=== PATIENT | female | born 1955 | race Caucasian/White ===

== ENCOUNTER 2017-07-10 14:20 | Emergency (ER) | payer OTHER ==
[~2017-07-10] VITALS: Ht 165.1 cm; Wt 72.6 kg
[2017-07-10 15:18] LABS: URINE BILIRUBIN NEGATIVE (Negative); URINE BLOOD NEGATIVE (Negative); URINE CLARITY CLEAR; URINE COLOR YELLOW; URINE GLUCOSE-RANDOM* NEGATIVE (Negative); URINE KETONES NEGATIVE (Negative); URINE LEUKOCYTES-REFLEX NEGATIVE (Negative); URINE NITRITE-REFLEX NEGATIVE (Negative); URINE PROTEIN (DIPSTICK) NEGATIVE (Negative); URINE SPECIFIC GRAVITY >= 1.030 (1.005-1.035); URINE UROBILINOGEN 0.2 E.U./dl (0.2-1.0)
== END 2017-07-10 17:45 | disposition home or self-care (01) ==
LOC: ER 14:20
PROVIDERS: Nurse Practitioner Family
DX: R39.15 Urgency of urination (principal); N89.8 Other specified noninflammatory disorders of vagina; E78.5 Hyperlipidemia, unspecified; M19.90 Unspecified osteoarthritis, unspecified site; F41.9 Anxiety disorder, unspecified; F17.210 Nicotine dependence, cigarettes, uncomplicated

== ENCOUNTER 2017-09-27 11:01 | Emergency (ER) | payer OTHER ==
[~2017-09-27] VITALS: Ht 162.6 cm; Wt 95.3 kg
[2017-09-27 12:04] LABS: URINE BILIRUBIN NEGATIVE (Negative); URINE BLOOD NEGATIVE (Negative); URINE CLARITY CLEAR; URINE COLOR YELLOW; URINE GLUCOSE-RANDOM* NEGATIVE (Negative); URINE KETONES TRACE (Negative); URINE LEUKOCYTES-REFLEX NEGATIVE (Negative); URINE NITRITE-REFLEX POSITIVE (Negative); URINE PROTEIN (DIPSTICK) NEGATIVE (Negative); URINE SPECIFIC GRAVITY 1.015 (1.005-1.035); URINE UROBILINOGEN 0.2 E.U./dl (0.2-1.0)
[2017-09-27 12:37] LABS: BACTERIA-REFLEX >30 Many /HPF (None Seen); CASTS None Seen /LPF (None Seen); CRYSTALS None Seen /LPF (None Seen); SQUAMOUS 4-10 Moderate /LPF (0-3); URINE RBC None Seen /HPF (0-2); URINE WBC-REFLEX 6-15 Few /HPF (0-5)
[2017-09-27] MEDS ORDERED: BACTRIM DS TAB1 EACH PO (12:39)
[2017-09-27 13:40] VITALS: BP 168/99
== END 2017-09-27 13:20 | disposition home or self-care (01) ==
LOC: ER 11:01
PROVIDERS: Nurse Practitioner
DX: N39.0 Urinary tract infection, site not specified (principal); H92.02 Otalgia, left ear; E78.5 Hyperlipidemia, unspecified; F41.9 Anxiety disorder, unspecified; F17.210 Nicotine dependence, cigarettes, uncomplicated

== ENCOUNTER 2018-12-10 16:37 | Emergency (ER) | payer OTHER ==
[~2018-12-10] VITALS: Ht 165.1 cm; Wt 77.1 kg
[~2018-12-10 16:37] MED LIST: BACTRIM DS TAB1 EACH PO
[2018-12-10 17:16] LABS: ABSOLUTE NEUTROPHILS 11.6 thou/uL (1.4-8.2); BASOPHILS 0.2 % (0.0-2.0); EOSINOPHILS 0.3 % (0.0-3.0); HEMATOCRIT 38.8 % (37.0-47.0); HEMOGLOBIN 12.8 gm/dL (12.0-15.0); LYMPHOCYTES 5.8 % (24.0-44.0); MCH 29.7 pg (26.0-34.0); MCV 90.1 fL (80.0-100.0); MONOCYTES 7.1 % (1.0-8.0); PLATELET COUNT 227 thou/uL (150-400); POLYS 86.6 % (36.0-66.0); RBC 4.31 mil/uL (4.20-5.00); RDW 14.4 % (10.5-14.5); WBC 13.5 thou/uL (4.0-11.0)
[2018-12-10 17:18] LABS: URINE BILIRUBIN NEGATIVE (Negative); URINE BLOOD 2+ (Negative); URINE CLARITY CLEAR; URINE COLOR YELLOW; URINE GLUCOSE-RANDOM* NEGATIVE (Negative); URINE KETONES 1+ (Negative); URINE LEUKOCYTES-REFLEX NEGATIVE (Negative); URINE NITRITE-REFLEX NEGATIVE (Negative); URINE PROTEIN (DIPSTICK) 1+ (Negative); URINE SPECIFIC GRAVITY >= 1.030 (1.005-1.035)
[2018-12-10 17:25] LABS: BACTERIA-REFLEX None Seen /HPF (None Seen); CASTS None Seen /LPF (None Seen); CRYSTALS None Seen /LPF (None Seen); SQUAMOUS 0-3 Few /LPF (0-3); URINE RBC 0-2 Rare /HPF (0-2); URINE WBC-REFLEX 0-5 Rare /HPF (0-5)
[2018-12-10] MEDS ORDERED: CLARITIN10 MG PO (17:29)
[2018-12-10] MEDS ORDERED: LISINOPRIL5 MG PO (17:29)
[2018-12-10] MEDS ORDERED: MOBIC7.5 MG PO (17:30)
[2018-12-10] MEDS ORDERED: LYRICA 50 MG50 MG PO (17:30)
[2018-12-10] MEDS ORDERED: LIORESAL 10 MG10 MG PO (17:32)
[2018-12-10] MEDS ORDERED: NAPROSYN500 MG PO (17:32)
[2018-12-10] MEDS ORDERED: METOPROLOL SUCC50 MG PO (17:32)
[2018-12-10] MEDS ORDERED: TYLENOL EXTRA500 MG PO (17:32)
[2018-12-10] MEDS ORDERED: TRAMADOL 50 MG50 MG PO (17:32)
[2018-12-10] MEDS ORDERED: DULCOLAX5 MG PO (17:33)
[2018-12-10] MEDS ORDERED: AMITRIPTYLINE H25 M2 PO (17:33)
[2018-12-10] MEDS ORDERED: ZOCOR20 MG PO (17:33)
[2018-12-10] MEDS ORDERED: MIRALAX17 GM PO (17:34)
[2018-12-10] MEDS ORDERED: MILK OF MA400 MG/5 M PO (17:34)
[2018-12-10 17:35] LABS: CALCIUM 9.2 mg/dL (8.5-10.1); CREATININE 0.6 mg/dL (0.6-1.0); POTASSIUM 3.1 mmol/L (3.5-5.1)
[2018-12-10 17:40] LABS: ALBUMIN 3.1 g/dL (3.4-5.0); TOTAL BILIRUBIN 0.5 mg/dL (<0.1-1.0); TOTAL PROTEIN 7.5 g/dL (6.4-8.2)
[2018-12-10 18:52] LABS: TROPONIN-I <0.06 ng/mL (<0.06)
[2018-12-10] MEDS ORDERED: VENTOLIN HFA 1818 GM INH (20:05)
[2018-12-10] MEDS ORDERED: COLACE100 MG PO (20:05)
[2018-12-10] MEDS ORDERED: DOXYCYCLINE 10100 MG PO (20:05)
[2018-12-10 21:34] VITALS: BP 174/69
== END 2018-12-10 21:35 ==
LOC: ER 16:37
PROVIDERS: Physician Assistant
DX: N39.0 Urinary tract infection, site not specified (principal); K59.00 Constipation, unspecified; J40 Bronchitis, not specified as acute or chronic; E78.5 Hyperlipidemia, unspecified; G35 Multiple sclerosis; F41.9 Anxiety disorder, unspecified; F17.210 Nicotine dependence, cigarettes, uncomplicated; Z88.1 Allergy status to other antibiotic agents

== ENCOUNTER 2018-12-25 04:54 | Inpatient (IN) | payer OTHER ==
[~2018-12-25] VITALS: Ht 165.1 cm; Wt 77.1 kg
--- NOTE | ~2018-12-25 | HC ---
[facility] [place] [address] CONSULTATION Name: KATHI REYES Room #: 456-P ADM IN M.R.#: [id number] Admission: 12/25/18 Attend Phys: Alistair Tapia MD Discharge: Date of : 57 Report #: [id number] THIS REPORT FOR: //name// CC: Alistair GROVES unknown DATE OF SERVICE: 12/25/2018 CHIEF COMPLAINT: Left distal femur fracture. HISTORY OF PRESENT ILLNESS: This is wheelchair bound a 63-year-old female who apparently while being moved in a Eliane lift began having increasing pain in her knee and distal femoral region. She was evaluated in the Emergency Room and determined to have a distal femur fracture. Apparently, there was some concern by the ED about a femoral artery injury; however, that turned out not to be the case. PAST MEDICAL HISTORY: Significant for hypertension, severe debility with wheelchair bound status, anxiety, hyperlipidemia. SOCIAL HISTORY: Significant for a history of tobacco use. MEDICATIONS: As noted on JUL. LABORATORY STUDIES: Noted a hemoglobin 12.1. X-rays and CT scan note a comminuted mildly displaced fracture at the distal femur, which is transverse in nature consistent with insufficiency type fracture along with a proximal fibular fracture, which is nondisplaced. IMPRESSION: Left nondisplaced distal femoral transverse fracture, insufficiency type. PLAN: Options were discussed at length with the patient. She is a nonsurgical candidate due to her nonambulatory status and the nondisplaced distal femur fracture. Plan at this point will be to proceed with splinting. She is to be nonweightbearing to that extremity. We will get her into a knee immobilizer in approximately a week or so. By: [id number] Pancho Mendoza MD /nt
[~2018-12-25 04:54] MED LIST changes: +AMITRIPTYLINE H25 M2 PO; +CLARITIN10 MG PO; +COLACE100 MG PO; +DOXYCYCLINE 10100 MG PO; +DULCOLAX5 MG PO; +LIORESAL 10 MG10 MG PO; +LISINOPRIL5 MG PO; +LYRICA 50 MG50 MG PO; +METOPROLOL SUCC50 MG PO; +MILK OF MA400 MG/5 M PO; +MIRALAX17 GM PO; +MOBIC7.5 MG PO; +NAPROSYN500 MG PO; +TRAMADOL 50 MG50 MG PO; +TYLENOL EXTRA500 MG PO; +VENTOLIN HFA 1818 GM INH; +ZOCOR20 MG PO
[2018-12-25 04:55] VITALS: BP 122/74
[2018-12-25 05:46] LABS: HEMATOCRIT 36.5 % (37.0-47.0); HEMOGLOBIN 12.1 gm/dL (12.0-15.0); MCH 29.4 pg (26.0-34.0); MCV 89.2 fL (80.0-100.0); RBC 4.1 mil/uL (4.20-5.00); RDW 14.3 % (10.5-14.5); WBC 9.6 thou/uL (4.0-11.0)
[2018-12-25 05:53] LABS: APTT 37.1 Seconds (24.5-32.8); CREATININE 0.6 mg/dL (0.6-1.0); INR 1.1; POTASSIUM 3.5 mmol/L (3.5-5.1); PROTIME 11.4 Seconds (9.3-11.4)
--- NOTE | 2018-12-25 07:36 | NUR ---
ASSUMED PT CARE 0715, PT ALERT AND ORIENTED, LEFT KNEE PAIN RATED 4/10. PT WOULD LIKE TO SPEAK TO TRAIN DIRECTOR AFTER ADMISSION. MULTIPLE COMPLAINTS REGARDING CURRENT LIVING FACILITY.
[2018-12-25 09:21] VITALS: BP 156/67
--- NOTE | 2018-12-25 10:04 | NUR ---
0938 ATTEMPTED TO CALL REPORT-LUAN ANAND GOWNED UP IN ISOLATION ROOM.
[2018-12-25 10:25] VITALS: BP 148/60
[2018-12-25 12:15] VITALS: BP 127/62
--- NOTE | 2018-12-25 16:47 | NUR ---
PT TO THE UNIT FROM THE ER. PT STATED THAT AT [facility]TC FACILITY THEY WERE GETTING HER OUT OF BED USING A LIFT AND THAT THEY HIT HER LEG AND SHE NOW HAS BROKEN LEG. ASSESSMENT CHARTED - MEDS PER JUL - GIVEN TRAMADOL FOR CO'S OF PAIN IN L LEG AND BACK WITH EFFECT - PT FOUND TO BE SLEEPING AT TIMES. DERICK DIET AND FLUIDS. NO CO'S OF NAUSEA. PODIATARY NOTIFIED OF CONUSLT DUE TO FUNGUS ON TOES. PT APPEARS TO BE FORGETFUL AT TIMES - REPEATING THINGS OVER AND OVER AGAIN. NO CO'S AT THE PRESENT TIME.
[2018-12-25 19:48] VITALS: BP 119/66
--- NOTE | 2018-12-26 00:34 | NUR ---
Assumed pt care at 1900. Pt is A/OX4 with forgetfulness.VSS. Pt has a splint wrapped in acewrap on LLE and another dressing on Right calf which pt reported having wound care done every other day at the facility. Informed pt wound care will be consulted to assess wound. Pt refused dsg to be taken off for assessment stating she wants the same treatment orders done as prior to adm as well as no normal saline stating it causes infection on her,Metal Bumper notified. C/o pain not reliefed by TramadolKerri CLAMPER notified gave order for [place] 5/325mg X1 and pt reports feeling much better and able to sleep LOP 2/10. Pt is on bedrest,incontinent of B&B,pericare done as needed. Fall precautions implemented,resting quietly at this time eyes closed with no distress noted. Will continue to monitor pt.
[2018-12-26 06:07] LABS: ABSOLUTE NEUTROPHILS 5.5 thou/uL (1.4-8.2); BASOPHILS 0.9 % (0.0-2.0); EOSINOPHILS 3.3 % (0.0-3.0); HEMATOCRIT 31.2 % (37.0-47.0); HEMOGLOBIN 10.3 gm/dL (12.0-15.0); LYMPHOCYTES 17.8 % (24.0-44.0); MCH 29.7 pg (26.0-34.0); MCV 90.2 fL (80.0-100.0); MONOCYTES 9.2 % (1.0-8.0); POLYS 68.8 % (36.0-66.0); RBC 3.45 mil/uL (4.20-5.00); RDW 14.6 % (10.5-14.5); WBC 8.1 thou/uL (4.0-11.0)
[2018-12-26 06:12] LABS: PLATELET COUNT 302 thou/uL (150-400)
[2018-12-26 06:35] LABS: CALCIUM 8.8 mg/dL (8.5-10.1); CREATININE 0.7 mg/dL (0.6-1.0); POTASSIUM 3.7 mmol/L (3.5-5.1)
[2018-12-26 08:51] VITALS: BP 140/48
--- NOTE | 2018-12-26 10:06 | NUR ---
WOUND CONSULT; THE PATIENT HAS A WOUND TO THE RIGHT CALF. SHE STATES SHE HAS HAD THIS WOUND FOR YEARS. A DOCTOR IS FOLLOWING THIS AT EITHER [facility] OR [facility]. THE WOUND HAS SOME FIBRIN AND HAS NO S/S OF INFECTION. RECOMMENDATION; WOUND CARE TO RIGHT CALF: GENTLY CLEANSE AREA WITH WOUND CLEANSER OR NORMAL SALINE, APPLY THERAHONEY TO WOUND BED, COVER WITH XEROFORM, COVER WITH A BOARDERED FOAM. COMPLETE CARES M/W/F AND PRN. DISCUSSED WITH LUAN
--- NOTE | 2018-12-26 13:31 | NUR ---
DISCHARGE PLANNING. PATIENT ADMITTED FROM [facility]. UPDATED CLINICAL INFORMATION FAXED TO [facility] FOR [facility]. PER PATIENT REQUEST REFERRAL FAXED TO [facility]. UNIT SW AWARE. FOLLOWING TO ASSIST.
--- NOTE | 2018-12-26 13:50 | NUR ---
PT ADMITTED RELATED TO DISTAL L FEMUR FX AND L FIBULAR HEAD FX. NO SURGICAL INTERVENTION PLANNED. CM MET WITH PT AT BEDSIDE THIS DAY. CM MET WITH PT AT BEDSIDE THIS DAY. PT INDICATED SHE LIVES IN AN APARTMENT HER SON AND CAT WITH NO STEPS TO ENTER AND NO STEPS INSIDE. PT INDICATED SHE HAS A WHEELCHAIR AND A 4WW FOR USE. CM REVIEWED RECORDS AND SPOKE WITH CARE TEAM. PT ACTUALLY LIVES AT [facility]. CM CALLED AND SPOKE WITH THE DON THERE AND SHE INDICATED THAT SHE HAS LIVED AT [facility] FOR ABOUT 2 YEARS. SHE INDICATED THAT PT IS WHEELCHAIR BOUND AND NON AMBULATORY. SHE INDICATED THAT THEY HAD USED A BARTOLOME TO ASSIST WITH TRANSFERS. DON INDICATED THAT THEY HAD ASSISTED PT WITH FINDING ALTERNATE PLACEMENT AT [facility] WITHIN THE PAST 30 DAYS BUT THAT PT HAD INDICATED SHE DIDN'T WANT TO GO THERE. [facility] INDICATED THEY WOULD BE ABLE TO ACCEPT PT BACK ONCE MEDICALLY STABLE IF PT WANTED TO RETURN. PT INDICATED THAT REFERRAL COULD BE SENT TO [facility] FOR REVIEW FOR POSSIBLE ADMISSION. CM CALLED AND LEFT A VM FOR PT'S SON. CM TO FOLLOW INDICATED WITH DC PLANNING.
--- NOTE | 2018-12-26 13:59 | NUR ---
PT ALERT AND ORIENTED TIMES FOUR. VSS, PT C/O PAIN LEFT LEG PRN PAIN MEDICATIONS GIVEN WITH GOOD RELEIF. DRESSING TO LEG DONE BY WOUND CARE. PT TOLERATES MEDS AND MEALS. WILL CONTINUE TO MONITOR.
[2018-12-26 20:52] VITALS: BP 143/85
--- NOTE | 2018-12-27 04:26 | NUR ---
Assumed pt care at 1900. A/OX4,forgetful. Pt will yell out on and off instead of using call light to call for help. Pt refused to take HS meds,stating she had stopped taking them while at the facility whileas she took them last night without problems. Also refused to take Morphine stating we are trying to make her high;informed pt she has a right to refuse. Angelica MEDICAL OFFICE MANAGER contacted,order obtained for [place] 5.325mg Q4 prn and dc Tramadol, pt happy with orders. Medicated for pain with Lang[place] with no immediate relief, reminded Morphine was still available to take. Pt agreed to taking Morphine later on with relief reported. Incontinent of B&B. Fall precautions in place,will continue to monitor pt.
[2018-12-27 08:36] VITALS: BP 146/61
[2018-12-27 17:50] VITALS: BP 154/71
--- NOTE | 2018-12-27 19:44 | NUR ---
PATIENT GIVEN PAIN MEDS PER ORDERS. PATIENT REPORTS PARTIAL RELIEF OF SYMPTOMS, PAIN RATED 3/10 POST INTERVENTION. PATIENT LLE SPLINT REMAINS IN PLACE. BEDREST MAINTAINED. REFUSING BEDPAN. FALL PRECAUTIONS IN PLACE. CONSUMING >80% OF MEALS.
--- NOTE | 2018-12-28 02:24 | NUR ---
ASSUMED CARE FROM DAY SHIFT , PT C/O LEG PAIN , MEDICATON GIVEN PRESCRIBED, PT VERY NEEDY CALLING FREQ FOR MINOR THINGS AND REPOSITIONING LEGS. PT INCONTINENT OF URINE AND STOOL. PT STATES SHE KNOW WHEN SHE HAVE THE URGE, ENCOURAGE PT TO CALL FOR BEDPAN. PT RESTING WELL DURIING HOURLY ROUNDS.
[2018-12-28 07:06] VITALS: BP 146/82
--- NOTE | 2018-12-28 08:25 | HC ---
[facility] [place] [address] CONSULTATION Name: KATHI REYES Room #: 456-P ADM IN M.R.#: [id number] Admission: 12/25/18 Attend Phys: Alistair Tapia MD Discharge: Date of : 57 Report #: [id number] THIS REPORT FOR: //name// CC: Alistair Tapia FAM unknown DATE OF SERVICE: 12/26/2018 INTRODUCTION: The patient is a 63-year-old female who has been admitted to [facility] with a fracture of the left distal femur and proximal fibula. The patient is debilitated, has a history of MS and has incurred insufficiency fractures within the last week. She is being managed conservatively during her initial stay. She has been identified as having severely dystrophic nails which have not been cared for in many months. She denies a history of diabetes and had no other relevant medical history with regard to her feet. PHYSICAL EXAMINATION: PEDAL EXAMINATION: Her pedal exam reveals dorsalis pedis pulse graded at 1/4, capillary refill time is within normal limits. There is moderate pedal edema. Her foot and left extremity are encased in a temporary splint. NEUROLOGICAL: The patient is grossly intact to sensory stimulus, including sharp, dull, proprioceptive and vibratory sensations. EXTREMITIES: Her nails demonstrate findings consistent with onychodystrophy and onychomycosis in varying degrees. The left hallux nail is severely dystrophic with old subungual bleeding. There are no acute findings noted on this examination. MUSCULOSKELETAL EXAM: With regard to her feet reveals no pathology. IMPRESSION: 1. Onychodystrophy associated with onychomycosis. 2. Multiple sclerosis. 3. Left femoral and fibular fractures. PLAN: The patient's condition has been reviewed with her. I debrided her nails today. No additional pathology was noted at the time of treatment. It has been a pleasure having the opportunity of caring for this patient. We will be pleased to follow up with her upon request. <ELECTRONICALLY SIGNED> By: Wilson Henson DPM 12/28/18 0825 [id number] Wilson Henson DPM /nt
[2018-12-28 10:26] VITALS: BP 146/82
[2018-12-28] MEDS ORDERED: ENOXAPARIN40 MG/0.1 SUBQ (12:43)
[2018-12-28] MEDS ORDERED: COLACE 100 MG100 MG PO (12:43)
[2018-12-28] MEDS ORDERED: DULCOLAX5 MG PO (12:43)
[2018-12-28] MEDS ORDERED: HYDROCODON-ACE1 EAC7 PO (12:43)
[2018-12-28] MEDS ORDERED: MIRALAX17 GM PO (12:43)
--- NOTE | 2018-12-28 13:41 | NUR ---
WOUND CARE FOLLOW UP; THE RIGHT CALF WOUND LOOKS MUCH WRONG ADDRESS CLERK TODAY USING THERAHONEY. PAIN HAS DECREASED WELL. THERE ARE NO S/S INFECTION. RECOMMENDATION; CONTINUE SAME DISCUSSED WITH RN
--- NOTE | 2018-12-28 15:42 | NUR ---
PT HAD BEEN ACCEPTED FOR ADMISSION AT [facility]. CARE TEAM INDICATED THAT HE IS MEDICALLY STABLE TO DC THIS DAY. CHART COPY ORDERED. ORDERS FAXED. REPORT TO BE CALLED TO . [facility] ARRANGED FOR [phone] THIS DAY. PT IS AWARE AND AGREEABLE. CM CALLED PT'S SON AND INFORMED HIM WELL. CM CALLED AND SPOKE WITH DONE AT [facility] AND ADMISSIONS AT [facility] AND THEY WILL COORDINATE GETTING PT'S PERSONAL BELONGINGS TO HER. PT WAS GIVEN THE NUMBER FOR MEDICAL RECORD. NO OTHER CM INTERVENTION INDICATED. CASE CLOSED.
--- NOTE | 2018-12-28 20:11 | NUR ---
PATIENT ALERT AND ORIENTED AND COOPERATIVE BUT FREQUENTLY ASKING FOR PAIN MEDICATIONS FOR BACK AND LEG. PAT[facility] [place] IN STABLE CONDITION WITH DISCHARGE ORDERS, PACKET, PRESCRIPTIONS AND ALL PERSONAL BELONGINGS. TRANSPORTED VIA TRANSPORT SERVICE ON [facility]. REPORT GIVEN TO OLY AT [facility] [phone].
== END 2018-12-28 16:30 | DRG 542 ==
LOC: ER 04:54 → 4W 07:44 → EROBS 07:44 → 4W 10:27
PROVIDERS: Emergency Medicine; Nurse Practitioner; ADMIT Hospitalist
PROC: 0HBRXZZ Excision of Toe Nail, External Approach (ICD-10-PCS; principal; 2018-12-25)
PROC: 2W3RX1Z Immobilization of Left Lower Leg using Splint (ICD-10-PCS; principal; 2018-12-25)
DX: M84.452A Pathological fracture, left femur, initial encounter for fracture (principal); G92 Toxic encephalopathy; M84.464A Pathological fracture, left fibula, initial encounter for fracture; E78.5 Hyperlipidemia, unspecified; M06.9 Rheumatoid arthritis, unspecified; F41.9 Anxiety disorder, unspecified; L60.3 Nail dystrophy; G35 Multiple sclerosis; B35.1 Tinea unguium; M19.90 Unspecified osteoarthritis, unspecified site; F17.210 Nicotine dependence, cigarettes, uncomplicated; G89.4 Chronic pain syndrome; F41.1 Generalized anxiety disorder; B18.2 Chronic viral hepatitis C; Z79.891 Long term (current) use of opiate analgesic; Z86.19 Personal history of other infectious and parasitic diseases; Z88.1 Allergy status to other antibiotic agents; Z88.8 Allergy status to other drugs, medicaments and biological substances; Z71.6 Tobacco abuse counseling; Z79.899 Other long term (current) drug therapy
CPT/HCPCS: 10040

== ENCOUNTER 2019-01-02 22:17 | Emergency (ER) | payer OTHER ==
[~2019-01-02] VITALS: Ht 165.1 cm; Wt 77.1 kg
[~2019-01-02 22:17] MED LIST changes: +COLACE 100 MG100 MG PO; +ENOXAPARIN40 MG/0.1 SUBQ; +HYDROCODON-ACE1 EAC7 PO
[2019-01-03] MEDS ORDERED: HYDROCODON-ACE1 EA12 PO (01:07)
[2019-01-03 02:00] VITALS: BP 122/71
== END 2019-01-03 02:00 | disposition home or self-care (01) ==
LOC: ER 22:17
DX: S72.402A Unspecified fracture of lower end of left femur, initial encounter for closed fracture (principal); S82.492A Other fracture of shaft of left fibula, initial encounter for closed fracture; E78.5 Hyperlipidemia, unspecified; M06.9 Rheumatoid arthritis, unspecified; F41.9 Anxiety disorder, unspecified; F17.210 Nicotine dependence, cigarettes, uncomplicated; Z88.1 Allergy status to other antibiotic agents; Z86.19 Personal history of other infectious and parasitic diseases; X58.XXXA Exposure to other specified factors, initial encounter; Y93.89 Activity, other specified; Y92.89 Other specified places as the place of occurrence of the external cause; Y99.8 Other external cause status